=== PATIENT | male | born 1995 | race Caucasian/White ===

== ENCOUNTER 2017-05-19 07:50 | Inpatient (IN) | payer OTHER ==
[~2017-05-19] VITALS: Ht 185.4 cm; Wt 68.0 kg
--- NOTE | 2017-05-19 21:00 | NUR ---
PRE-ADMISSION NOTE: Patient assessed in intake office at 2100 on 05/19/2017. Patient is ambulatory with steady gate, stable, AOx4, speech is soft and clear. Patient states that he is "first time for Safety Detox from Alcohol, Opioid, and Methamphetamine". Patient states that he" last used Alcohol/Vodka PO - 750 ml today, on 05/19/2017 @1700 ;Heroin via IV - 7 gram on 05/19/2017 @1900, and Methamphetamine smoke - 0.5 grams today, on 05/19/2017 @1900". COWS 9,CIWA 7. The patient reported the following symptoms of withdrawal: anxiety, agitation, nervousness, tremors, body aches, diaphoresis, abdominal cramps, headache, restless legs, insomnia and fatigue. Patient denies SI/HI. Breathing is even and unlabored. Patient denies SOB and chest pain. VS: T: 97.9; BP: 137/75; HR: 80; RR: 18; O2 SAT: 97%. Patient reports generalized body aches pain now: "10/25". Patient reports NKA. Patient placed on Full Code, Regular Diet, Fall and Seizures Precautions. Patient instructed on unit protocol of vitals Q4H and COWS/CIWA assessments. Patient verbalized understanding and agreement. Patient also instructed on policy regarding destruction of any controlled substances/prescriptions brought to facility, and handling of all medications. Patient verbalized understanding and agreement. Will complete admission assessment when patient is brought up to unit.
[2017-05-19 21:10] VITALS: BP 137/75
--- NOTE | 2017-05-19 21:10 | NUR ---
ADMISSION NOTE New patient is a 31 year old male admitted to [facility] on 05/19/2017 @2110 for medically supervised withdrawal from Alcohol, Opioid, and Methamphetamine. Patient reports NKA. Patient placed on Full Code, Regular Diet, Fall and Seizures Precautions. Patient denies Seizures History. Patient reports "no PCP" . Pre-assessment completed in intake. Patient provided UDS test at this time. Patient is ambulatory with steady gate, stable, A&Ox4, speech is soft clear. VS upon admission: T: 97.9; BP: 137/75; HR: 80; RR: 18; O2 SAT: 97%. Patient reports generalized body aches pain now: "10/25". Ht: 73 in; Wt: 150 lb. COWS 9, CIWA 7. The patient presented with: anxiety, agitation, nervousness, tremors, sweating, headache, body aches, restless legs, insomnia and fatigue. Patient denies SI/HI. Patient is cooperative and verbally appropriate. Patient reports the following substances use: 1."Alcohol: Vodka 750 ml five times a week since 2014. Last used Alcohol/Vodka PO 750 ml today, on 05/19/2017 @1700 ". 2."Heroin via IV more than 7 grams every day grams every day since 2014. Last dose taken - 7 gram today, on 05/19/2017 @1900". 3." Methamphetamine smoke 0.5 grams two times a week since 2014. Last dosage - 0.5 grams today, on 05/19/2017 @1900". Patient reports "smoking 20 cigarettes every day since 1999". Written smoking cessation education provided. Patient verbalized understanding. Patient reports recently Patient states that he is "first time for Safety Detox from Alcohol, Opioid, and Methamphetamine". Patient reports that longest period of sobriety was from 2012 for 1,5 years to 2014". Patient denies a history of suicidal ideations. Patient denies current SI/HI. Past Medical History: Anxiety, Depression. Patient did not brought Home Medications. Upon initial assessment, patient's Respirations unlabored and even. Patient denies SOB and chest pain. Lungs Sounds are clear bilaterally. Bowel Sounds active in all x4 quadrants. Abdomen is soft and non-tender. PERRLA, brisk capillary refill, party host/hostess equal and strong. Skin is intact, warm and dry to touch. Patient oriented to his room, Nurse Call Light, and Serenity Floor. Encourage fluids as tolerated. Encourage to attend activities groups. All needs met. Safety measures on place. Call light within reach, bed in lowest position and locked, padded rails up bilaterally rails up bilaterally. Patient admitted under the care doctor Amari Cain MD. Doctor Amari Cain MD aware for patient condition. Will continue to monitor closely.
[2017-05-19] MEDS ORDERED: LORAZEPAM 2 MG/1 ML VIAL IM PRN (22:00)
[2017-05-19] MEDS ORDERED: MAG HYDROX/AL HYDROX/SIMETH 30 ML LIQUID UDC PO PRN (22:00)
[2017-05-19] MEDS ORDERED: LOPERAMIDE HCL 2 MG CAPSULE PO PRN ×2 (22:00)
[2017-05-19] MEDS ORDERED: CLONIDINE HCL 0.1 MG TABLET PO PRN (22:00)
[2017-05-19] MEDS ORDERED: METHOCARBAMOL 750 MG TABLET PO PRN (22:00)
[2017-05-19] MEDS ORDERED: DICYCLOMINE HCL 20 MG TABLET PO PRN (22:00)
[2017-05-19] MEDS ORDERED: BUPRENORPHINE HCL 2 MG TAB.SUBL SL PRN (22:00)
[2017-05-19] MEDS ORDERED: IBUPROFEN 600 MG TABLET PO PRN (22:00)
[2017-05-19] MEDS ORDERED: MIRALAX 17 GM POWD.PACK PO PRN (22:00)
[2017-05-19] MEDS ORDERED: MAGNESIUM HYDROXIDE 30 ML LIQUID UDC PO PRN (22:00)
[2017-05-19] MEDS ORDERED: ACETAMINOPHEN 325 MG TABLET PO PRN (22:00)
[2017-05-19] MEDS ORDERED: LORAZEPAM 1 MG TABLET PO PRN ×2 (22:00)
[2017-05-19] MEDS ORDERED: DOCUSATE SODIUM 250 MG CAPSULE PO PRN (22:00)
[2017-05-19] MEDS ORDERED: THIAMINE HCL 200 MG/2 ML VIAL IM ONE (22:00)
[2017-05-19] MEDS ORDERED: ONDANSETRON 4 MG/2 ML VIAL IM PRN (22:00)
[2017-05-19] MEDS ORDERED: LORAZEPAM 1 MG TABLET PO ONE (23:00)
[2017-05-19 23:01] LABS: *AMPHETAMINE, URINE POSITIVE (NEGATIVE); *BARBITURATE, URINE NEGATIVE (NEGATIVE); *CANNABINOID, URINE NEGATIVE (NEGATIVE); *COCCAINE, URINE NEGATIVE (NEGATIVE); *OPIATE, URINE POSITIVE (NEGATIVE); *PHENCYCLIDINE SCREEN,URINE NEGATIVE (NEGATIVE)
[2017-05-19] MEDS ORDERED: LORAZEPAM 1 MG TABLET ONE ×2 (23:42)
[2017-05-20] VITALS (7 sets, daily range): BP systolic 112–128; BP diastolic 51–79
--- NOTE | 2017-05-20 07:05 | NUR ---
END OF SHIFT NOTE: Patient is a 31 year old male admitted for medically supervised withdrawal from Alcohol, Opioid, and Methamphetamine. 5 day Ativan and 5 Day Subutex Taper will starting today, 05/20/2017 @0900, as ordered. Patient reports NKA, is on Full Code, Regular Diet, Fall and Seizures Precautions. Patients denies Seizures Hx r/t withdrawal from substances. Past Medical History: Anxiety, Depression. Last COWS 8, CIWA 5 @0400. Patient c/o anxiety, agitation, nervousness, tremors, sweating, body aches, restless legs, insomnia and fatigue. Patient denies SI/HI. Last VS @0400: T: 98.3, HR: 65, RR: 16 , RA O2SAT 100%, BP: 116/74, pain level: "0/10". Respirations unlabored and even. Skin is intact, warm and dry to touch. Encourage fluids as tolerated. Encourage to attend activities groups. No PRN Medications administrated during my shift. Patient slept 8 hours, intake 200 ml, voided x1. All needs met. Safety measures on place. Call light within reach, bed in lowest position and locked, padded rails up bilaterally. Patient endorsed to day shift nurse. Report given.
--- NOTE | 2017-05-20 07:40 | NUR ---
Received pt in bed sleeping, no s/s of distress, sleep 8 hours, cow 8, and ciwa 5, will check on him later.
[2017-05-20] MEDS: FOLIC ACID 1 MG TABLET PO SCH (08:44)
[2017-05-20] MEDS: BUPRENORPHINE HCL 2 MG TAB.SUBL SL SCH ×4 (08:44→20:15)
[2017-05-20] MEDS: LORAZEPAM 1 MG TABLET PO SCH ×4 (08:44→20:15)
[2017-05-20] MEDS: MULTIVITAMINS,THERAPEUTIC TABLET PO SCH (08:44)
--- NOTE | 2017-05-20 08:44 | NUR ---
Pt in room/bed, awake,alert, here for alcohol, heroin, and methamphetamine use, no c/o discomfrot at this time, complient with meds, encourage pos fluids, also to attend groups, no distress.
[2017-05-20 08:45] LABS: BASOPHILS % (AUTO) 0.6 % (0.0-2.0); EOSINOPHILS # (AUTO) 0.1 K/uL (0.0-0.7); EOSINOPHILS % (AUTO) 2.7 % (0.0-7.0); HEMATOCRIT 37.7 % (36.7-47.1); HEMOGLOBIN 13.1 g/dL (12.5-16.3); LYMPHOCYTES # (AUTO) 1.7 K/uL (20.0-40.0); LYMPHOCYTES % (AUTO) 39.3 % (20.5-51.5); MEAN CORPUSCULAR HEMOGLOBIN 28.9 uug (23.8-33.4); MEAN CORPUSCULAR HGB CONC 35 g/dL (32.5-36.3); MEAN CORPUSCULAR VOLUME 83.2 fL (73.0-96.2); MONOCYTES # (AUTO) 0.3 K/uL (2.0-10.0); MONOCYTES % (AUTO) 8.1 % (0.0-11.0); NEUTROPHILS # (AUTO) 2.1 K/uL (1.8-8.9); NEUTROPHILS % (AUTO) 49.3 % (38.5-71.5); PLATELET COUNT (AUTO) 256 K/uL (152-348); RED BLOOD CELL COUNT(AUTO) 4.53 MIL/uL (4.06-5.63); WHITE BLOOD COUNT (AUTO) 4.3 K/uL (3.6-10.2)
[2017-05-20] MEDS: THIAMINE HCL 100 MG TABLET PO SCH (08:45)
[2017-05-20] MEDS ORDERED: TUBERCULIN,PURIF.PROT.DERIV. 5 TU/0.1 ML TEST ID ONE ×2 (09:00→13:00)
[2017-05-20 09:11] LABS: ETHANOL < 3 MG/DL (0-0)
[2017-05-20 09:13] LABS: ALANINE AMINOTRANSFERASE 25 U/L (16-63); ALKALINE PHOSPHATASE 68 U/L (50-136); AMYLASE 59 U/L (25-115); ASPARTATE AMINOTRANSFERASE 18 U/L (15-37); BILIRUBIN,TOTAL 0.7 mg/dL (0.2-1.0); CARBON DIOXIDE 31 mmol/L (21-32); CHLORIDE 106 mmol/L (98-107); CREATININE 0.8 mg/dL (0.6-1.3); GLUCOSE 85 mg/dL (74-106); MAGNESIUM 1.8 mg/dL (1.8-2.4); POTASSIUM 3.7 mmol/L (3.5-5.1); TOTAL PROTEIN, SERUM 7.9 g/dL (6.4-8.2); UREA NITROGEN, BLOOD 10 mg/dL (7-18)
[2017-05-20] MEDS ORDERED: KETOROLAC TROMETHAMINE 30 MG INJ IM PRN (11:15)
--- NOTE | 2017-05-20 13:30 | NUR ---
Pt in bed sleeping no s/s of complications, denies aany aches nor chills,mno distress.
--- NOTE | 2017-05-20 16:38 | NUR ---
Pt in bed complient with meds, eating meals in room encourage to attend to group but decline.
--- NOTE | 2017-05-20 18:50 | NUR ---
START OF SHIFT NOTE: Patient is a 31 year old male admitted for medically supervised withdrawal from Alcohol, Opioid, and Methamphetamine, continues 5 Day Ativan and 5 Day Subutex taper. He is tolerated well without ASE. Patient remains compliant with medications and diet regime. Patient reports NKA, is on Full Code, Regular Diet, Fall and Seizures Precautions. Patients denies Seizures Hx. Patient is alert and oriented x4. COWS 9, CIWA 7. Patient c/o anxiety, agitation, nervousness, tremors, sweating, body aches, restless legs, insomnia and fatigue. Patient denies SI/HI. VSWNL. Respirations are unlabored and even. Lungs Sounds are clear throughout. Patient denies cough, SOB and chest pain. Heart rate is regular. Abdomen is soft and non-tender. Bowel Sounds are active in all four quadrants. Skin is intact, warm and dry to touch. Encouraged fluids as tolerated. Encouraged to attend group activities. Safety measures in place: Call light within reach, bed is locked and lowest positions, padded bed rails up x2. Patient endorsed by day shift nurse. Report received. Will continue to monitor closely.
[2017-05-20] MEDS: diphenhydrAMINE 50 MG CAPSULE PO PRN (20:14)
--- NOTE | 2017-05-20 20:14 | NUR ---
PRN BENADRYL 50 MG 1 CAPSULE PO ADMINISTRATION PRN Benadryl 50 mg 1 capsule PO administrated for insomnia with full glass of water as ordered. Patient tolerated well. All needs met. Safety measures on place. Call light within reach, bed in lowest position and locked, padded rails up x2. Will continue to monitor closely.
[2017-05-20] MEDS: GABAPENTIN 300 MG CAPSULE PO SCH (20:15)
--- NOTE | 2017-05-20 21:14 | NUR ---
RE-ASSESSMENT Patient is sleeping. Respirations even and unlabored. RR 15. PRN Benadryl 50 mg 1 capsule PO administrated for insomnia @2013 was effective. All needs met. Safety measures on place. Call light within reach, bed in lowest position and locked, bed rails up bilaterally. Will continue to monitor closely.
[2017-05-21] VITALS: BP 125/60
[2017-05-21 04:00] VITALS: BP 105/54
--- NOTE | 2017-05-21 07:01 | NUR ---
END OF SHIFT NOTE: Patient is a 31 year old male admitted for Alcohol, Opioid, and Methamphetamine dependence, continues 5 day Ativan and 5 Day Subutex Taper which tolerated well without ASE. Patient reports NKA, is on Full Code, Regular Diet, Fall and Seizures Precautions. Patients denies Seizures Hx. Last COWS 9, CIWA 5 @0400. Patient c/o anxiety, agitation, nervousness, tremors, sweating, body aches, restless legs, insomnia and fatigue. Patient denies SI/HI. Last VS @0400: T: 98.1, HR: 86, RR: 16, RA O2SAT 97%, BP: 105/54, pain level: "8/10". Respirations unlabored and even. Skin is intact, warm and dry to touch. Encourage fluids as tolerated. Encourage to attend activities groups. PRN Benadryl 50 mg 1 capsule PO administrated for insomnia @2013 was effective. Patient slept 9 hours, intake 1,184 ml, voided x2. All needs met. Safety measures on place. Call light within reach, bed in lowest position and locked, padded rails up bilaterally. Patient endorsed to day shift nurse. Report given.
--- NOTE | 2017-05-21 07:15 | NUR ---
Start of Shift Endorsement received from nightshift nurse. Pt is a 21 y/o male admitted for Heroin and Alcohol dependence. Pt has been placed on a 5 day Ativan and 5 day Subutex taper. PT is tolerating both tapers and moderately withdrawing AEB CIWA 5, COWS 9 at 0400. Pt received PRN Benadryl and reports sleeping 9 hours. VS WNL. Full Code. PT is alert and oriented x4. Pt is in STABLE condition at this time. Remains compliant with medication and diet regimen. All needs have been met, All safety measures in place per hospital policy. Bed in lowest position, side rails up x2, call-light within reach. Will continue to monitor
[2017-05-21 08:00] VITALS: BP 119/55
[2017-05-21 08:06] LABS: HEPATITIS B SURFACE AG Negative (Negative)
[2017-05-21] MEDS: LORAZEPAM 1 MG TABLET PO SCH ×3 (08:58→20:54)
[2017-05-21] MEDS: MULTIVITAMINS,THERAPEUTIC TABLET PO SCH (08:58)
[2017-05-21] MEDS: GABAPENTIN 300 MG CAPSULE PO SCH ×3 (08:58→20:54)
[2017-05-21] MEDS: BUPRENORPHINE HCL 2 MG TAB.SUBL SL SCH ×3 (08:58→20:54)
[2017-05-21] MEDS: THIAMINE HCL 100 MG TABLET PO SCH (08:58)
[2017-05-21] MEDS: FOLIC ACID 1 MG TABLET PO SCH (08:58)
--- NOTE | 2017-05-21 09:46 | NUR ---
Therapist prompted client about group times. Client stated he will attend all groups if he feels well.
[2017-05-21 12:00] VITALS: BP 118/55
[2017-05-21] MEDS ORDERED: NAPROXEN 500 MG TABLET PO ONE (15:00)
[2017-05-21] MEDS: BACLOFEN 10 MG TABLET PO SCH ×2 (15:14→20:54)
[2017-05-21 16:00] VITALS: BP 125/66
--- NOTE | 2017-05-21 19:25 | NUR ---
Endorsement received from nightstnft nurse. Pt is a 21 y/o male admitted for Heroin and Alcohol dependence. Pt has been placed on a 5 day Ativan and 5 day Subutex taper. PT is tolerating both tapers and moderately withdrawing AEB CIWA 5, COWS 5 at 1600. Pt did not receive any PRN medications. Educated pt on diet and medication regimen. VS WNL. Full Code. PT is alert and oriented x4. Pt is in STABLE condition at this time. Remains compliant with medication and diet regimen. All needs have been met, All safety measures in place per hospital policy. Bed in lowest position, side rails up x2, call-light within reach. Will continue to monitor
--- NOTE | 2017-05-21 19:30 | NUR ---
START OF SHIFT Pt is a 21 y/o male admitted on 05/19/16 for ETOH, opiate and meth dependence. Pt was dependent on vodka, heroin IV and meth. Pt is full code, regular diet, NKA and on fall/seizure precautions. Pt reports PMH of anxiety and depression, denies hx of seizures. Pt is on a 5 day Ativan and 5 day Subutex taper that started on 05/20/16, tolerating well. Upon assessment pt laying in bed with eyes closed. Upon fully awakening, pt presents with anxiety, body aches, intermittent headache, agitation, sweats, fatigue, difficulty sleeping, decreased appetite, dysphoria and anhedonia. Respirations even and unlabored. Denies N/V/D. Denies A/V hallucinations. Denies chest pain or SOB. Medications due. Safety measures in place. Call light within reach. Will continue to monitor. Addendum: 05/22/17 at 0730 by PRETTY MELVIN RN admitted 05/19/17, taper started 05/20/17
[2017-05-21 20:00] VITALS: BP 116/75
[2017-05-21] MEDS: diphenhydrAMINE 50 MG CAPSULE PO PRN (20:54)
[2017-05-21] MEDS: NAPROXEN 500 MG TABLET PO SCH (20:54)
[2017-05-21] MEDS: CLONIDINE HCL 0.1 MG TABLET PO SCH (20:54)
--- NOTE | 2017-05-21 20:54 | NUR ---
PRN BENADRYL ADMINISTRATION Pt requests sleep aid. Safety measures in place. Call light within reach. Will continue to monitor.
--- NOTE | 2017-05-21 21:54 | NUR ---
PRN BENADRYL REASSESSMENT Pt is laying in bed with eyes closed. Respirations 16, even and unlabored. Safety measures in place. Call light within reach. Will continue to monitor.
[2017-05-22] VITALS: BP 102/60
--- NOTE | 2017-05-22 | NUR ---
COWS/CIWA DEFERRED Pt is laying in bed with eyes closed, COWS/CIWA deferred, to be assessed when pt is awake per orders. Respirations 16, even and unlabored. Safety measures in place. Call light within reach. Will continue to monitor.
[2017-05-22 04:00] VITALS: BP 105/53
--- NOTE | 2017-05-22 07:04 | NUR ---
END OF SHIFT Pt is a 21 y/o male admitted on 05/19/16 for ETOH, opiate and meth dependence. Pt was dependent on vodka, heroin IV and meth. Pt is full code, regular diet, NKA and on fall/seizure precautions. Pt reports PMH of anxiety and depression, denies hx of seizures. Pt is on a 5 day Ativan and 5 day Subutex taper that started on 05/20/16, tolerating well. Pt presented with anxiety, body aches, intermittent headache, agitation, sweats, fatigue, difficulty sleeping, decreased appetite, dysphoria and anhedonia. Scheduled medications and PRN Benadryl administered, effective in S/S of withdrawal as verbalized by pt. Last COWS 5 and CIWA 6 at 1999. Pt slept 9 hours. Intake 350 ml, void x 1, stool x 0. Safety measures in place. Call light within reach. Pts needs have been met. Endorsed to day shift nurse. Addendum: 05/22/17 at 0730 by PRETTY MELVIN RN TAPER STARTED 05/20/17 Addendum: 05/22/17 at 0730 by PRETTY MELVIN RN ADMITTED ON 05/19/17
--- NOTE | 2017-05-22 07:08 | NUR ---
Start of Shift Endorsement received from nightshift nurse. Pt is a 21 y/o male admitted for Heroin and Alcohol dependence. Pt has been placed on a 5 day Ativan and 5 day Subutex taper. PT is tolerating both tapers and moderately withdrawing AEB CIWA 6, COWS 5 at 0400. Pt received PRN Benadryl and reports sleeping 7 hours. VS WNL. Full Code. PT is alert and oriented x4. Pt is in STABLE condition at this time. Remains compliant with medication and diet regimen. All needs have been met, All safety measures in place per hospital policy. Bed in lowest position, side rails up x2, call-light within reach. Will continue to monitor
[2017-05-22 08:00] VITALS: BP 115/59
[2017-05-22] MEDS ORDERED: BUPRENORPHINE HCL 2 MG TAB.SUBL SL SCH (09:00)
[2017-05-22] MEDS: FOLIC ACID 1 MG TABLET PO SCH (09:15)
[2017-05-22] MEDS: THIAMINE HCL 100 MG TABLET PO SCH (09:15)
[2017-05-22] MEDS: GABAPENTIN 300 MG CAPSULE PO SCH ×3 (09:16→21:37)
[2017-05-22] MEDS: LORAZEPAM 1 MG TABLET PO SCH ×3 (09:16→17:17)
[2017-05-22] MEDS: BACLOFEN 10 MG TABLET PO SCH (09:16)
[2017-05-22] MEDS: NAPROXEN 500 MG TABLET PO SCH ×2 (09:16→21:47)
[2017-05-22] MEDS: MULTIVITAMINS,THERAPEUTIC TABLET PO SCH (09:16)
[2017-05-22] MEDS: CLONIDINE HCL 0.1 MG TABLET PO SCH ×3 (09:16→21:37)
[2017-05-22] MEDS: FAMOTIDINE 20 MG TABLET PO SCH (09:16)
[2017-05-22 12:00] VITALS: BP 114/71
[2017-05-22] MEDS: ONDANSETRON ODT 4 MG TAB.RAPDIS SL PRN ×2 (12:25→23:10)
[2017-05-22] MEDS: BUPRENORPHINE HCL 2 MG TAB.SUBL SL SCH ×2 (14:51→21:37)
[2017-05-22] MEDS: BACLOFEN 20 MG TABLET PO SCH ×2 (15:00→21:37)
[2017-05-22 16:00] VITALS: BP 127/58
--- NOTE | 2017-05-22 19:05 | NUR ---
End of Shift Endorsement given to nightshift nurse. Pt is a 21 y/o male admitted for Heroin and Alcohol dependence. Pt has been placed on a 5 day Ativan and 5 day Subutex taper. PT is tolerating both tapers and moderately withdrawing AEB CIWA 5, COWS 4 at 1600. Pt received PRN Zofran for nausea and vomiting, medication was effective. Educated pt on diet regimen. Intake: 2000ml, Void x2, BM x0. VS WNL. Full Code. PT is alert and oriented x4. Pt is in STABLE condition at this time. Remains compliant with medication and diet regimen. All needs have been met, All safety measures in place per hospital policy. Bed in lowest position, side rails up x2, call-light within reach. Will continue to monitor
--- NOTE | 2017-05-22 19:30 | NUR ---
START OF SHIFT Pt is a 21 y/o male admitted on 05/19/17 for ETOH, opiate and meth dependence. Pt was dependent on vodka, heroin IV and meth. Pt is full code, regular diet, NKA and on fall/seizure precautions. Pt reports PMH of anxiety and depression, denies hx of seizures. Pt is on a 5 day Ativan and 5 day Subutex taper that started on 05/20/17, tolerating well. Upon assessment pt laying in bed with eyes closed. Upon fully awakening, pt presents with anxiety, intermittent body aches, intermittent headache, sweats, fatigue, dysphoria and anhedonia. Respirations even and unlabored. Denies N/V/D. Denies A/V hallucinations. Denies chest pain or SOB. Medications due. Safety measures in place. Call light within reach. Will continue to monitor.
[2017-05-22 20:00] VITALS: BP_SYST 104; BP_SYST 127; BP_DIAS 53; BP_DIAS 75
[2017-05-22] MEDS ORDERED: LORAZEPAM 1 MG TABLET PO SCH (21:00)
--- NOTE | 2017-05-22 23:10 | NUR ---
PRN ZOFRAN ODT ADMINISTRATION Pt presents with nausea and one episode of vomiting. Upon assessment pt reports after vomiting his nausea is mild but consistent. Safety measures in place. Call light within reach. Will continue to monitor.
--- NOTE | 2017-05-22 23:40 | NUR ---
PRN ZOFRAN ODT REASSESSMENT Pt reports nausea has improved, no further episodes of vomiting, Zofran effective. Safety measures in place. Call light within reach. Will continue to monitor.
--- NOTE | 2017-05-23 | NUR ---
COWS/CIWA DEFERRED AND VITALS REFUSED Pt is laying in bed with eyes closed, COWS/CIWA deferred, to be assessed when pt is awake per orders. Vitals refused. Respirations 17, even and unlabored. Safety measures in place. Call light within reach. Will continue to monitor.
--- NOTE | 2017-05-23 07:05 | NUR ---
Start of Shift Endorsement received from nightshift nurse. Pt is a 21 y/o male admitted for Heroin and Alcohol dependence. Pt has been placed on a 5 day Ativan and 5 day Subutex taper. PT is tolerating both tapers and moderately withdrawing AEB CIWA 6, COWS 8 at 0400. Pt received PRN Zofran for nausea, medications was effective. Pt reports sleeping 9 hours. VS WNL. Full Code. PT is alert and oriented x4. Pt is in STABLE condition at this time. Remains compliant with medication and diet regimen. All needs have been met, All safety measures in place per hospital policy. Bed in lowest position, side rails up x2, call-light within reach. Will continue to monitor
--- NOTE | 2017-05-23 07:09 | NUR ---
END OF SHIFT Pt is a 21 y/o male admitted on 05/19/17 for ETOH, opiate and meth dependence. Pt was dependent on vodka, heroin IV and meth. Pt is full code, regular diet, NKA and on fall/seizure precautions. Pt reports PMH of anxiety and depression, denies hx of seizures. Pt is on a 5 day Ativan and 5 day Subutex taper that started on 05/20/17, tolerating well. Pt presented with anxiety, intermittent body aches, intermittent headache, nausea, one episode of vomiting, sweats, fatigue, dysphoria and anhedonia. Scheduled medications and PRN Zofran odt administered, effective in S/S of withdrawal as verbalized by pt. Last COWS 6 and CIWA 8 at 1999. Pt slept 8 hours. Intake 5600 ml, void x 2, stool x 0. Vitals WNL. Safety measures in place. Call light within reach. Pts needs have been met. Endorsed to day shift nurse.
[2017-05-23 08:00] VITALS: BP 118/65
[2017-05-23] MEDS ORDERED: FAMOTIDINE 20 MG TABLET PO SCH (09:00)
[2017-05-23] MEDS: CLONIDINE HCL 0.1 MG TABLET PO SCH ×3 (09:10→21:16)
[2017-05-23] MEDS: THIAMINE HCL 100 MG TABLET PO SCH (09:10)
[2017-05-23] MEDS: MULTIVITAMINS,THERAPEUTIC TABLET PO SCH (09:10)
[2017-05-23] MEDS: NAPROXEN 500 MG TABLET PO SCH ×2 (09:10→21:16)
[2017-05-23] MEDS: LORAZEPAM 1 MG TABLET PO SCH ×3 (09:10→21:15)
[2017-05-23] MEDS: FOLIC ACID 1 MG TABLET PO SCH (09:10)
[2017-05-23] MEDS: FAMOTIDINE 20 MG TABLET PO SCH (09:10)
[2017-05-23] MEDS: BACLOFEN 20 MG TABLET PO SCH ×3 (09:11→21:16)
[2017-05-23] MEDS: BUPRENORPHINE HCL 2 MG TAB.SUBL SL SCH ×3 (09:11→21:16)
[2017-05-23] MEDS: GABAPENTIN 300 MG CAPSULE PO SCH ×3 (09:11→21:16)
[2017-05-23 12:00] VITALS: BP 116/65
[2017-05-23] MEDS ORDERED: NICOTINE POLACRILEX 4 MG GUM-PK OF TEN BC PRN (15:30)
[2017-05-23] MEDS ORDERED: HYDROXYZINE PAMOATE 25 MG CAPSULE PO PRN (15:30)
[2017-05-23 16:00] VITALS: BP 112/69
--- NOTE | 2017-05-23 19:09 | NUR ---
End of Shift Endorsement given to nightshift nurse. Pt is a 21 y/o male admitted for Heroin and Alcohol dependence. Pt has been placed on a 5 day Ativan and 5 day Subutex taper. PT is tolerating both tapers and moderately withdrawing AEB CIWA 4, COWS 4 at 1600. Pt received PRN Zofran for nausea and vomiting, medication was effective. Educated pt on diet regimen. Intake: 22ml, Void x5, BM x1. VS WNL. Full Code. PT is alert and oriented x4. Pt is in STABLE condition at this time. Remains compliant with medication and diet regimen. All needs have been met, All safety measures in place per hospital policy. Bed in lowest position, side rails up x2, call-light within reach. Will continue to monitor
--- NOTE | 2017-05-23 19:10 | NUR ---
Start of Shift Patient Received. Patient is in his room awake, alert and verbally responsive. Breathing even and non labored. Patient is a 21 year old male admitted on 05/19/17 for ETOH and Opiate Dependence and is currently receiving a 5 day Ativan and 5 day Subutex taper. No known allergies, Full Code, Regular Diet, placed on fall and seizure precautions and skin intact. Past medical history noted as anxiety and depression. Per endorsement, No PRN medications administered. Last noted COWS 4 and CIWA 4. All needs attended to promptly. Will continue to monitor.
[2017-05-23 20:15] VITALS: BP 139/70
[2017-05-23] MEDS: DICYCLOMINE HCL 20 MG TABLET PO SCH (21:15)
--- NOTE | 2017-05-24 | NUR ---
Vitals Refused Patient is noted in bed sleeping. Breathing even and non labored. Patient refused vitals to be rendered. All needs attended to promptly. Will continue to monitor. Addendum: 05/24/17 at 0138 by BENEDICT GERARDO LVN Amended: Links added.
--- NOTE | 2017-05-24 04:00 | NUR ---
Vitals Refused Patient is noted in bed sleeping. Breathing even and non labored. Patient refused vitals to be rendered. All needs attended to promptly. Will continue to monitor.
--- NOTE | 2017-05-24 07:03 | NUR ---
End of Shift Patient is in bed sleeping. Breathing even and non labored. No signs of pain or discomfort noted. Patient was admitted for Benzo and Opiate and continues on a modified 4 day Subutex and modified 4 day Ativan tapers. No PRN medications administered. Last noted COWS 2 and CIWA 2. Will continue to monitor. Addendum: 05/24/17 at 0705 by BENEDICT GERARDO LVN ENTERED IN ERROR
--- NOTE | 2017-05-24 07:05 | NUR ---
End of Shift Patient is in bed sleeping. Breathing even and non labored. Patient is a 21 year old male admitted for ETOH and Opiate Dependence and is currently receiving a 5 day Ativan and 5 day Subutex taper. No PRN medications administered. Last noted COWS 6 and CIWA 4. All needs attended to promptly. Will endorse to continue plan of care as ordered.
--- NOTE | 2017-05-24 07:43 | NUR ---
Start of shift note; Received report from night nurse. Patient is a 21 year old male admitted on 05/19/17 for ETOH/ Opiate dependence. Patient was placed on 5 day Ativan taper and 5 day Subutex taper, no adverse reaction noted. Patient had an uneventful night. Patient slept for 5 hours. All safety measures secured. Will continue to monitor patient.
[2017-05-24 08:00] VITALS: BP 108/60
[2017-05-24] MEDS: DICYCLOMINE HCL 20 MG TABLET PO SCH ×3 (09:00→21:30)
[2017-05-24] MEDS: BUPRENORPHINE HCL 2 MG TAB.SUBL SL SCH ×2 (09:06→21:30)
[2017-05-24] MEDS: BACLOFEN 20 MG TABLET PO SCH ×3 (09:06→21:30)
[2017-05-24] MEDS: GABAPENTIN 300 MG CAPSULE PO SCH ×3 (09:07→21:30)
[2017-05-24] MEDS: CLONIDINE HCL 0.1 MG TABLET PO SCH ×3 (09:07→21:00)
[2017-05-24] MEDS: NAPROXEN 500 MG TABLET PO SCH ×2 (09:07→21:31)
[2017-05-24] MEDS: LORAZEPAM 1 MG TABLET PO SCH ×2 (09:07→21:31)
[2017-05-24] MEDS: FAMOTIDINE 20 MG TABLET PO SCH (09:07)
[2017-05-24] MEDS: THIAMINE HCL 100 MG TABLET PO SCH (09:07)
[2017-05-24] MEDS: FOLIC ACID 1 MG TABLET PO SCH (09:07)
[2017-05-24] MEDS: MULTIVITAMINS,THERAPEUTIC TABLET PO SCH (09:07)
[2017-05-24 12:00] VITALS: BP 103/68
[2017-05-24 16:00] VITALS: BP 98/68
--- NOTE | 2017-05-24 18:00 | NUR ---
End of shift note; Patient is AOX4. Patient remained compliant with treatment plan and medication regime.Medications noted to be effective in reducing withdrawal symptoms. Patient participated in group therapy and activities. All safety measures secured. Met all needs.
--- NOTE | 2017-05-24 19:30 | NUR ---
START OF SHIFT Pt is a 21 y/o male admitted on 05/19/17 for ETOH, opiate and meth dependence. Pt was dependent on vodka, heroin IV and meth. Pt is full code, regular diet, NKA and on fall/seizure precautions. Pt reports PMH of anxiety and depression, denies hx of seizures. Pt is on a 5 day Ativan and 5 day Subutex taper that started on 05/20/17, tolerating well. Pt presents with anxiety, intermittent sweats, intermittent headache, restlessness, fatigue, dysphoria and anhedonia. Respirations even and unlabored. Denies N/V/D. Denies A/V hallucinations. Denies chest pain or SOB. Medications due. Safety measures in place. Call light within reach. Will continue to monitor.
[2017-05-24 20:00] VITALS: BP 124/73
--- NOTE | 2017-05-24 21:00 | NUR ---
SCHEDULED CLONIDINE 0.1 MG HELD BP 124/73 HR 62, orders to hold if HR < 70. Safety measures in place. Call light within reach. Will continue to monitor.
[2017-05-24] MEDS: diphenhydrAMINE 50 MG CAPSULE PO PRN (23:49)
--- NOTE | 2017-05-24 23:49 | NUR ---
PRN BENADRYL ADMINISTRATION Pt requests sleep aid, appears restless. Safety measures in place. Call light within reach. Will continue to monitor.
--- NOTE | 2017-05-25 00:49 | NUR ---
PRN BENADRYL REASSESSMENT Pt laying in bed with eyes closed. Respirations 16, even and unlabored. Safety measures in place. Call light within reach. Will continue to monitor.
[2017-05-25 01:00] VITALS: BP 130/61
--- NOTE | 2017-05-25 04:00 | NUR ---
COWS/CIWA DEFERRED AND VITALS REFUSED Pt laying in bed with eyes closed, COWS/CIWA deferred, to be assessed when pt is awake per orders. Vitals refused. Respirations 18, even and unlabored. Safety measures in place. Call light within reach. Will continue to monitor.
--- NOTE | 2017-05-25 07:23 | NUR ---
END OF SHIFT Pt is a 21 y/o male admitted on 05/19/17 for ETOH, opiate and meth dependence. Pt was dependent on vodka, heroin IV and meth. Pt is full code, regular diet, NKA and on fall/seizure precautions. Pt reports PMH of anxiety and depression, denies hx of seizures. Pt is on a 5 day Ativan and 5 day Subutex taper that started on 05/20/17, tolerating well. Pt presented with anxiety, intermittent sweats, intermittent headache, restlessness, fatigue, dysphoria and anhedonia. Scheduled medications and PRN Benadryl administered, effective in S/S of withdrawal AEB COWS 3 CIWA 4 lowered to COWS 2 CIWA 2 during shift. Pt slept 5 hours. Intake 1117 ml, void x 2, stool x 0. Safety measures in place. Call light within reach. Pts needs have been met. Endorsed to day shift nurse.
[2017-05-25 08:00] VITALS: BP 114/60
--- NOTE | 2017-05-25 08:30 | NUR ---
Receivd pt in bd awake,alert,oriented x4, verbally reponsiive,her for vodka 750 ml,heroin 7 gm and meth 0.5 gm on daily basis last 05/19/17, on seizure and fall precautions,on x5 days dalila with ativan and subutex started 05/20/17, no a/r notedfull code reg diet tolerated well, encourage to attend group but he declained, no distress at this time.
[2017-05-25] MEDS ORDERED: LORAZEPAM 1 MG TABLET PO SCH (09:00)
[2017-05-25] MEDS ORDERED: BUPRENORPHINE HCL 2 MG TAB.SUBL SL SCH (09:00)
[2017-05-25] MEDS: FOLIC ACID 1 MG TABLET PO SCH (09:28)
[2017-05-25] MEDS: FAMOTIDINE 20 MG TABLET PO SCH (09:28)
[2017-05-25] MEDS: THIAMINE HCL 100 MG TABLET PO SCH (09:29)
[2017-05-25] MEDS: BACLOFEN 20 MG TABLET PO SCH ×3 (09:30→21:08)
[2017-05-25] MEDS: DICYCLOMINE HCL 20 MG TABLET PO SCH ×3 (09:30→21:08)
[2017-05-25] MEDS: MULTIVITAMINS,THERAPEUTIC TABLET PO SCH (09:30)
[2017-05-25] MEDS: GABAPENTIN 300 MG CAPSULE PO SCH ×3 (09:31→21:08)
[2017-05-25] MEDS: NAPROXEN 500 MG TABLET PO SCH ×2 (09:31→21:08)
[2017-05-25] MEDS: CLONIDINE HCL 0.1 MG TABLET PO SCH ×3 (09:34→21:08)
[2017-05-25 12:00] VITALS: BP 126/62
--- NOTE | 2017-05-25 13:00 | NUR ---
pt in room, attended to mornig groups, is going to [place], aware what is going to happen when he is released from program, complient with meds, no a/r noted.
[2017-05-25 16:00] VITALS: BP 126/68
--- NOTE | 2017-05-25 16:27 | NUR ---
pt is in group now, complient with meds, after step to take after dc from program, encourage po fluids.
[2017-05-25] MEDS ORDERED: NICO4GUM38 BC (19:11)
[2017-05-25] MEDS ORDERED: DIPH50CA37 PO (19:11)
[2017-05-25] MEDS ORDERED: BACL20TA PO (19:11)
[2017-05-25] MEDS ORDERED: NAPR500T4 PO (19:11)
[2017-05-25] MEDS ORDERED: DICY20TA28 PO ×2 (19:11)
[2017-05-25] MEDS ORDERED: FAMO20TA8 PO (19:11)
[2017-05-25] MEDS ORDERED: GABA-534 PO ×2 (19:11)
[2017-05-25] MEDS ORDERED: HYDR-3895 PO (19:11)
[2017-05-25] MEDS ORDERED: CLON0.1T14 PO (19:11)
--- NOTE | 2017-05-25 19:30 | NUR ---
START OF SHIFT Pt is a 21 y/o male admitted on 05/19/17 for ETOH, opiate and meth dependence. Pt was dependent on vodka, heroin IV and meth. Pt is full code, regular diet, NKA and on fall/seizure precautions. Pt reports PMH of anxiety and depression, denies hx of seizures. Pt finished a 5 day Ativan and Subutex taper and is scheduled to be d/c tomorrow. Pt presents with anxiety, intermittent sweats, intermittent headache, restlessness, difficulty sleeping, dysphoria and anhedonia. Respirations even and unlabored. Denies N/V/D. Denies A/V hallucinations. Denies chest pain or SOB. Medications due. Safety measures in place. Call light within reach. Will continue to monitor.
[2017-05-25 20:00] VITALS: BP 142/82
--- NOTE | 2017-05-26 | NUR ---
COWS/CIWA DEFERRED AND VITALS REFUSED Pt laying in bed with eyes closed, COWS/CIWA deferred, to be assessed when pt is awake per orders. Vitals refused. Respirations 16, even and unlabored. Safety measures in place. Call light within reach. Will continue to monitor.
--- NOTE | 2017-05-26 07:14 | NUR ---
END OF SHIFT Pt is a 21 y/o male admitted on 05/19/17 for ETOH, opiate and meth dependence. Pt was dependent on vodka, heroin IV and meth. Pt is full code, regular diet, NKA and on fall/seizure precautions. Pt reports PMH of anxiety and depression, denies hx of seizures. Pt finished a 5 day Ativan and Subutex taper and is scheduled to be d/c today. Pt presented with anxiety, intermittent sweats, intermittent headache, restlessness, difficulty sleeping, dysphoria and anhedonia. Scheduled medications administered, effective in S/S of withdrawal as verbalized by pt. No PRNs administered. Last COWS 2 and CIWA 2 at 1999. Pt slept 5 hours. Intake 1210 ml, void x 1, stool x 0. Safety measures in place. Call light within reach. Pts needs have been met. Endorsed to day shift nurse.
--- NOTE | 2017-05-26 07:49 | NUR ---
START OF SHIFT NOTE Received report from night nurse, 21 year old male admitted for ETOH/Opioid/Meth withdrawal. Patient completed his Ativan/Subutex taper. Per endorsement pt did not receive any PRN, last CIWA score was 2,COWS 2, slept for 5 hours. Patient received awake,alert and oriented x4. Patient was educated regarding plan of care for the day and medication regimen. Safety measures in place. Call light with in reach. Will continue to monitor.
[2017-05-26 08:00] VITALS: BP 120/84
[2017-05-26] MEDS: NAPROXEN 500 MG TABLET PO SCH (08:34)
[2017-05-26] MEDS: THIAMINE HCL 100 MG TABLET PO SCH (08:34)
[2017-05-26] MEDS: MULTIVITAMINS,THERAPEUTIC TABLET PO SCH (08:34)
[2017-05-26] MEDS: GABAPENTIN 300 MG CAPSULE PO SCH (08:34)
[2017-05-26] MEDS: BACLOFEN 20 MG TABLET PO SCH (08:34)
[2017-05-26] MEDS: DICYCLOMINE HCL 20 MG TABLET PO SCH (08:34)
[2017-05-26] MEDS: FOLIC ACID 1 MG TABLET PO SCH (08:34)
[2017-05-26] MEDS: FAMOTIDINE 20 MG TABLET PO SCH (08:34)
[2017-05-26 08:35] VITALS: BP 120/86
[2017-05-26] MEDS: CLONIDINE HCL 0.1 MG TABLET PO SCH (08:35)
--- NOTE | 2017-05-26 09:24 | NUR ---
DISCHARGE NOTE Patient is in stable condition. Vital signs WNL. Patient is alert oriented x4, Skin intact warm and dry to touch. Patient denies any SI/HI ideations. All discharge paper work done signed and dated. Patient educated about discharge instructions, Pt verbalized understanding. Patient 's last COWS/CIWA score was 0. Patient discharged from [facility] on 05/26/17 at 0924. Patient left the building with all of his belongings and prescriptions, Patient did not bring any medications with him to the unit. has been contracted and notified of Pt's discharge.
[2017-05-27] MEDS ORDERED: BUPRENORPHINE HCL 2 MG TAB.SUBL SL PRN (02:00)
== END 2017-05-26 09:24 | disposition home or self-care (01) | DRG 895 ==
LOC: EDBD 20:17 → SRC 20:17
PROVIDERS: ADMIT Internal Medicine; ATTEND Internal Medicine
PROC: HZ2ZZZZ Detoxification Services for Substance Abuse Treatment (ICD-10-PCS; principal; 2017-05-19)
PROC: HZ31ZZZ Individual Counseling for Substance Abuse Treatment, Behavioral (ICD-10-PCS; 2017-05-21)
DX: F10.230 Alcohol dependence with withdrawal, uncomplicated (principal); F11.23 Opioid dependence with withdrawal; Y90.9 Presence of alcohol in blood, level not specified; F15.10 Other stimulant abuse, uncomplicated; F17.210 Nicotine dependence, cigarettes, uncomplicated; Z91.89 Other specified personal risk factors, not elsewhere classified; F12.10 Cannabis abuse, uncomplicated; Z81.3 Family history of other psychoactive substance abuse and dependence
CPT/HCPCS: 36415; 70030-TC; 80307; 80324; 80361; 83735; 85025; 86580; 86592; 86705; 86803; 87340; 87806; A4663; G0480; J3411; Q0162; Q0163